=== PATIENT | female | born 1965 | race Caucasian/White ===

== ENCOUNTER → 2018-02-16 08:38 | Outpatient (CLI) | payer OTHER, SELFPAY ==
[2018-02-16 10:04] LABS: Add Manual Diff / Slide Review NO; Basophils Percent Auto 0.8 % (0-2); Eosinophils Percent Auto 2.4 % (2-4); Hematocrit 43.3 % (36-46); Hemoglobin 14.7 g/dL (12.0-16.0); Lymphocytes Percent Auto 29.4 % (25-40); Mean Corpuscular HGB Conc 34.1 % (30-36); Mean Corpuscular Hemoglobin 30.5 PG (26-34); Mean Corpuscular Volume 89.4 fL (80-100); Monocytes Percent Auto 7.4 % (3-14); Neutrophils Absolute Auto 3900 /uL (3000-5900); Platelet Count 284 X10^3/uL (150-400); Red Blood Cell Count 4.84 X10^6/uL (4.0-5.2); White Blood Cell Count 6.5 X10^3/uL (4.5-11.0)
[2018-02-16 10:41] LABS: Alanine Aminotransferase 125 IU/L (9-52); Albumin 4.1 g/dL (3.5-5.0); Albumin Globulin Ratio 1.3 (1.0-2.8); Alkaline Phosphatase 235 U/L (38-126); Aspartate Aminotransferase 98 IU/L (14-36); BUN Creatinine Ratio 24.4 (6-22); Bilirubin Total 0.5 mg/dL (0.2-1.3); Calcium 9.6 mg/dL (8.4-10.2); Cholesterol 230 mg/dL (140-199); Estimated Glomerular Filt Rate > 60.0 mL/min (>60); Globulin 3.2 g/dL (1.7-4.1); Glucose 88 mg/dL (70-100); HDL Cholesterol 82 mg/dL (40-60); HEMOLYSIS < 15 (0-50); LDL Cholesterol Calculated 124 mg/dL (<100); Potassium 4.3 mmol/L (3.4-5.1); Sodium 139 mmol/L (137-145); Total Protein 7.3 g/dL (6.3-8.2); Triglycerides 119 mg/dL (35-150)
[2018-02-16 10:58] LABS: TSH w/ Reflex to FT4 6.26 uIU/mL (0.47-4.68)
[2018-02-16 11:50] LABS: Free T4, Direct Thyroxine 0.95 ng/dL (0.78-2.19)
== END ==
PROVIDERS: PCP Family Medicine; Visit Provider Family Medicine
DX: I10 Essential (primary) hypertension (principal)
CPT/HCPCS: 36415; 80053; 80061; 84439; 84443; 85025

== ENCOUNTER → 2018-07-26 07:47 | Outpatient (CLI) | payer OTHER, SELFPAY ==
--- NOTE | 2018-07-26 07:49 | DI.US.S_ITS ---
PROCEDURE: US PELVIC COMPLETE INDICATIONS: PMB TECHNIQUE: Real-time scanning was performed of the pelvic organs, with image documentation. Additional endovaginal scanning was necessary due to incomplete visualization of the adnexal and endometrial structures by transabdominal scanning. COMPARISON: None. FINDINGS: Transabdominal scanning: Limited scanning through the kidneys shows no hydronephrosis. No pathologic free abdominal or pelvic fluid. Endovaginal scanning: Uterus: Uterus is normal in size at 5.1 x 2.1 x 4.0 cm. The endometrium measures 6.7 mm in combined thickness. Anterior intramural fibroid within the lower uterine segment measuring 23 mm. Ovaries: Normal ovaries bilaterally measuring 2.0 x 0.9 x 1.7 cm on the right and 1.9 x 0.9 x 2.1 cm on the left. IMPRESSION: 23 mm intramural fibroid and endometrial complex is thickened measuring 6.7 mm in this postmenopausal patient with history of bleeding. Endometrial biopsy recommended. Dictated by: Samir SANTANA Interpreted: Esteban Gaona MD on 07/26/2018 at 11:55 Approved by: Esteban Gaona M.D. on 07/26/2018 at 13:09
== END ==
PROVIDERS: PCP Family Medicine; Visit Provider Family Medicine
DX: N95.0 Postmenopausal bleeding (principal); D25.1 Intramural leiomyoma of uterus; R93.89 Abnormal findings on diagnostic imaging of other specified body structures
CPT/HCPCS: 76856

== ENCOUNTER → 2019-02-07 09:39 | Outpatient (CLI) | payer OTHER, SELFPAY ==
[2019-02-07 10:03] LABS: Add Manual Diff / Slide Review NO; Basophils Absolute Auto 0 /uL (0-100); Eosinophils Absolute Auto 100 /uL (0-450); Eosinophils Percent Auto 2.6 % (2-4); Hematocrit 42.7 % (36-46); Hemoglobin 14.7 g/dL (12.0-16.0); Lymphocytes Absolute Auto 1600 /uL (1100-4500); Lymphocytes Percent Auto 32.7 % (25-40); Mean Corpuscular HGB Conc 34.3 % (30-36); Mean Corpuscular Hemoglobin 30.6 PG (26-34); Monocytes Absolute Auto 300 /uL (0-900); Monocytes Percent Auto 6.3 % (3-14); Neutrophils Absolute Auto 2700 /uL (1500-7000); Neutrophils Percent Auto 57.4 % (50-75); Platelet Count 307 X10^3/uL (150-400); Red Cell Distribution Width 14.1 % (11.6-14.8); White Blood Cell Count 4.7 X10^3/uL (4.5-11.0)
[2019-02-07 10:22] LABS: Alanine Aminotransferase 296 IU/L (9-52); Albumin Globulin Ratio 1.1 (1.0-2.8); Alkaline Phosphatase 186 U/L (38-126); Aspartate Aminotransferase 251 IU/L (14-36); BUN Creatinine Ratio 16.7 (6-22); Bilirubin Total 0.4 mg/dL (0.2-1.3); Blood Urea Nitrogen 15 mg/dL (7-17); Calcium 9.7 mg/dL (8.4-10.2); Carbon Dioxide 28 mmol/L (22-32); Chloride 103 mmol/L (98-107); Cholesterol 228 mg/dL (140-199); Estimated Glomerular Filt Rate > 60.0 mL/min (>60); Globulin 3.5 g/dL (1.7-4.1); Glucose 94 mg/dL (70-100); HDL Cholesterol 84 mg/dL (40-60); HEMOLYSIS < 15 (0-50); LDL Cholesterol Calculated 120 mg/dL (<100); Potassium 4.5 mmol/L (3.4-5.1); Sodium 138 mmol/L (137-145); Total Protein 7.5 g/dL (6.3-8.2); Triglycerides 120 mg/dL (35-150)
[2019-02-07 11:04] LABS: Vitamin D 25 Hydroxy (D3) 36.6 ng/mL (30.0-100.0)
[2019-02-07 11:16] LABS: TSH w/ Reflex to FT4 6.36 uIU/mL (0.47-4.68)
[2019-02-07 11:51] LABS: Free T4, Direct Thyroxine 0.83 ng/dL (0.78-2.19)
== END ==
PROVIDERS: PCP Family Medicine; Visit Provider Family Medicine
DX: E03.9 Hypothyroidism, unspecified (principal); E55.9 Vitamin D deficiency, unspecified; K21.9 Gastro-esophageal reflux disease without esophagitis; R79.89 Other specified abnormal findings of blood chemistry; Z00.00 Encounter for general adult medical examination without abnormal findings
CPT/HCPCS: 36415; 80053; 80061; 82306; 84439; 84443; 85025

== ENCOUNTER → 2019-07-06 09:29 | Outpatient (CLI) | payer OTHER, SELFPAY ==
[2019-07-06 11:17] LABS: Alanine Aminotransferase 44 IU/L (9-52); Albumin 4.1 g/dL (3.5-5.0); Albumin Globulin Ratio 1.2 (1.0-2.8); Alkaline Phosphatase 174 U/L (38-126); Aspartate Aminotransferase 38 IU/L (14-36); Bilirubin Total 0.4 mg/dL (0.2-1.3); Bilirubin Unconjugated 0.3 mg/dL (0.0-1.1); Globulin 3.3 g/dL (1.7-4.1); HEMOLYSIS < 15 (0-50); Total Protein 7.4 g/dL (6.3-8.2)
[2019-07-06 11:51] LABS: TSH w/ Reflex to FT4 2.31 uIU/mL (0.47-4.68)
== END ==
PROVIDERS: PCP Family Medicine; Visit Provider Family Medicine
DX: E03.9 Hypothyroidism, unspecified (principal); R94.5 Abnormal results of liver function studies
CPT/HCPCS: 36415; 80076; 84443

== ENCOUNTER 2019-11-06 08:34 | Day surgery (SDC) | payer OTHER, SELFPAY ==
[2019-11-03 15:26] VITALS: BMI 39.0
[2019-11-06] VITALS (9 sets, daily range): BP systolic 120–144; BP diastolic 79–92; PULSE 77–89; RESP 7–16; TEMP 35.8–36.6; O2SAT 95–99; BMI 38.2
--- NOTE | 2019-11-06 | PATH_ITS ---
[facility] Accession Number: [id number] . 01 Material submitted: . PART A: endometrium - ENDOMETRIAL POLYPS PART B: endometrium - ENDOMETRIAL CURETTINGS . 02 Diagnosis: A. Endometrial Polyps: Patchy glandular crowding in a background of disordered proliferative endometrium; negative for glandular hyperplasia, cytologic atypia or malignancy. Most tissue fragments demonstrate prominent vessels, suggstive of polyp, if clinical and imaging findings are concordant. . B. Endometrial Curettings: Small portions of weakly proliferative endometrium with patchy stromal breakdown; negative for glandular hyperplasia, cytologic atypia or malignancy. [facility] 11/08/2019 1437 Local . 02 Electronically signed: . Sandy Garcia MD, Pathologist NPI- [id number] . 01 Gross description: . Part A: ENDOMETRIAL POLYPS: Received in formalin are multiple fragment(s) of patricia, soft tissue measuring 0.1 x 0.1 x 0.1 cm to 1.3 x 0.6 x 0.6 cm submitted entirely in 1 cassette(s) Part B: ENDOMETRIAL CURETTINGS: Received in formalin are minute fragments of mucoid and hemorrhagic material measuring 0.2 x 0.2 x 0.2 cm in aggregate. Submitted in toto in 1 cassette. /[facility] 11/06/2019 2237 Local . 02 Pathologist provided ICD-10: N84.0 . 02 CPT . 325016, [id number] Performed at: 01 [facility] [address], [place], [place] [id number] MD Johnnie Redding MD Phone: [phone] Performed at: 02 [facility] [address] [place], [place] [id number] MD Danielle Garcia MD Phone: [phone]
[2019-11-06] MEDS: LACTATED RINGERS 1,000 ML 42 ML IV (09:16)
--- NOTE | 2019-11-06 09:54 | PM.PREOP ---
Pre-operative Note Interval Note History & Physical reviewed/Exam performed by Physician: Yes Changes to H&P: No H&P completed within 30 days and has changed as indicated here:: Patient reports forgot vaginal cytotec, discussed that may be unable
--- NOTE | 2019-11-06 10:58 | SUR.OPER ---
Lithotomy on padded OR bed, head on pillow, arms secured on padded arm boards at <90 degrees abduction. Legs secured in padded yellow fins stirrups.
--- NOTE | 2019-11-06 12:00 | P.OP_ITS ---
Operative Date/Time/Diagnoses Date of procedure: 11/06/19 Time of procedure: 12:00 Pre-op diagnosis: postmenopausal bleeding, thickened endometrium Post-op diagnosis: other (multiple large endometrial polyps) Procedure & Clinicians Procedure: diagnostic hysteroscopy, dilation and curettage Same procedure as scheduled: Yes Indications: persistent postmenopausal bleeding, thickened endometrium Surgeon: Leah Silva Yarder Puncher: Felipe Barbour Anesthesia Type: MAC +/- Operative Notes Findings: Normal postmenopausal vulva and vagina. On entrance with hysteroscope, 2 large and 1 smaller long, thin polyps attached to uterine fundus and extending the length of the uterine cavity. Otherwise quite atrophic endometrium. No other abnormality seen. Closure Type: not applicable Specimen(s): other (endometrial polyps, endometrial curettings) Estimated Blood Loss (mL): 10 Blood products transfused: none Procedure in detail: After proper consents were obtained, the patient was taken to the operating room. IV sedation was placed and an LMA placement assured, and the patient was placed in the dorsal lithotomy position. Bimanual exam revealed a retroverted uterus. The patient was prepped with Betadine, and a speculum inserted in the vagina. The anterior lip of the cervix was grasped with a single-tooth tenaculum, and Hegar dilators were used to serially dilate the cervix with gentle pressure to 8 mm. The speculum was removed and replaced with a right angle retractor, a diagnostic hysteroscope was introduced into the uterus, and the above findings were noted. The hysteroscope was withdrawn, and the polyp forceps introduced gently through the cervix and used to grasp and remove multiple polyps. The hysteroscope was reintroduced, and 1 polyp was remaining. The hysteroscope was again withdrawn, and the final polyp grasped with the polyp forceps and removed. A gentle curettage of the endometrial cavity was performed, though minimal further tissue was removed and a gritty texture was achieved. Instruments were removed from the endometrial cavity, and the single-tooth tenaculum removed from the anterior lip of the cervix. Gentle pressure was applied with a sponge stick, and good hemostasis was achieved at the tenaculum sites. The retractor was removed from the vagina, and the patient was taken to the recovery room in stable condition. All counts were correct x2. Complications: none Post-operative Condition: stable Disposition: PACU Plan for aftercare: Routine postoperative care and follow-up in the clinic.
--- NOTE | 2019-11-06 12:00 | SUR.PHASEI ---
reported off to Eve
--- NOTE | 2019-11-06 12:03 | SUR.PHASEI ---
assumed care of pt at this time. pt resting in bed with eyes closed, easily responds to voice when spoken to.
[2019-11-06] MEDS: OXYCODONE/ACETAMINOPHEN 5/325 TABLET 1 TAB PO (12:20)
--- NOTE | 2019-11-06 15:44 | SUR.PHASEII ---
Late entry: NO drainage on zaheer pad, belly soft. New pad provided for pt to go home in. Pt voided prior to discharge, pt left when ready and left in stable condition.
== END 2019-11-06 13:50 | disposition home or self-care (01) ==
PROVIDERS: PCP Family Medicine; Referring Provider Obstetrics & Gynecology; Visit Provider Obstetrics & Gynecology
PROC: 0UDB8ZZ Extraction of Endometrium, Via Natural or Artificial Opening Endoscopic (ICD-10-PCS; CPT 58558; principal; 2019-11-06 09:45)
DX: N84.0 Polyp of corpus uteri (principal)
CPT/HCPCS: 58558; J1100; J2405; J2704; J3010

== ENCOUNTER → 2020-09-16 17:25 | Outpatient (CLI) | payer OTHER, SELFPAY ==
--- NOTE | 2020-09-16 17:26 | DI.MG.S_ITS ---
BILATERAL DIGITAL SCREENING MAMMOGRAM 3D/2D WITH CAD: 09/16/2020 CLINICAL: Routine screening. Comparison is made to exams dated: 01/29/2018 mammogram - [facility], 12/29/2012 mammogram, and 04/17/2014 mammogram - [facility]. There are scattered fibroglandular elements in both breasts. Current study was also evaluated with a Computer Aided Detection (CAD) system. No significant masses, calcifications, or other findings are seen in either breast. There has been no significant interval change. IMPRESSION: NEGATIVE There is no mammographic evidence of malignancy. A 1 year screening mammogram is recommended. This exam was interpreted at Station ID: [id number]. NOTE: For mammograms, a report in lay terms will be sent to the patient. Approximately 15% of breast malignancies will not be visualized mammographically. In the management of a palpable breast mass, a negative mammogram must not discourage biopsy of a clinically suspicious lesion. Electronically Signed By: Cristel baker/juancho:09/17/2020 13:08:23 letter sent: Normal Exam ACR BI-RADS Category 1: Negative 3341F
== END ==
PROVIDERS: PCP Family Medicine; Referring Provider Family Medicine; Visit Provider Family Medicine
DX: Z12.31 Encounter for screening mammogram for malignant neoplasm of breast (principal)
CPT/HCPCS: 77063; 77067

== ENCOUNTER → 2021-01-30 14:52 | Outpatient (CLI) | payer OTHER, SELFPAY ==
[2021-01-30] MEDS: COVID-19 VACC #1, MRNA(MOD) 100 MCG/0.5 ML VIAL IM (15:00)
== END ==
PROVIDERS: PCP Family Medicine; Visit Provider Internal Medicine
DX: Z23 Encounter for immunization (principal)
CPT/HCPCS: 0011A; 91301

== ENCOUNTER → 2021-03-01 08:29 | Outpatient (CLI) | payer OTHER, SELFPAY ==
[2021-03-01 10:48] LABS: Add Manual Diff / Slide Review NO; Basophils Absolute Auto 100 /uL (0-100); Basophils Percent Auto 0.8 % (0-2); Eosinophils Absolute Auto 200 /uL (0-450); Eosinophils Percent Auto 3.2 % (2-4); Lymphocytes Absolute Auto 1800 /uL (1100-4500); Lymphocytes Percent Auto 25.5 % (25-40); Mean Corpuscular HGB Conc 33.2 % (30-36); Mean Corpuscular Hemoglobin 29.5 PG (26-34); Mean Corpuscular Volume 88.7 fL (80-100); Monocytes Absolute Auto 400 /uL (0-900); Neutrophils Absolute Auto 4700 /uL (1500-7000); Neutrophils Percent Auto 64.5 % (50-75); Platelet Count 298 X10^3/uL (150-400); Red Cell Distribution Width 14.3 % (11.6-14.8); White Blood Cell Count 7.2 X10^3/uL (4.5-11.0)
[2021-03-01 11:03] LABS: Alanine Aminotransferase 39 IU/L (<35); Albumin 3.8 g/dL (3.5-5.0); Albumin Globulin Ratio 1.2 (1.0-2.8); Alkaline Phosphatase 161 U/L (38-126); Aspartate Aminotransferase 42 IU/L (14-36); BUN Creatinine Ratio 21.4 (6-22); Bilirubin Total 0.4 mg/dL (0.2-1.3); Blood Urea Nitrogen 18 mg/dL (7-17); Calcium 9.2 mg/dL (8.4-10.2); Carbon Dioxide 24 mmol/L (22-32); Chloride 105 mmol/L (98-107); Cholesterol 248 mg/dL (140-199); Estimated Glomerular Filt Rate > 60.0 mL/min (>60); Globulin 3.2 g/dL (1.7-4.1); Glucose 91 mg/dL (70-100); HDL Cholesterol 58 mg/dL (40-60); HEMOLYSIS 18 (0-50); LDL Cholesterol Calculated 156 mg/dL (<100); Potassium 4.1 mmol/L (3.4-5.1); Sodium 136 mmol/L (137-145); Triglycerides 170 mg/dL (35-150)
[2021-03-01 11:30] LABS: TSH w/ Reflex to FT4 4.58 uIU/mL (0.47-4.68)
== END ==
PROVIDERS: PCP Family Medicine; Referring Provider Family Medicine; Visit Provider Family Medicine
DX: E03.9 Hypothyroidism, unspecified (principal); F34.1 Dysthymic disorder; K76.0 Fatty (change of) liver, not elsewhere classified
CPT/HCPCS: 36415; 80053; 80061; 84443; 85025

== ENCOUNTER → 2021-03-07 15:57 | Outpatient (CLI) | payer OTHER, SELFPAY ==
[2021-03-07] MEDS: COVID-19 VACC #2, MRNA(MOD) 100 MCG/0.5 ML VIAL IM (16:10)
== END ==
PROVIDERS: PCP Family Medicine; Visit Provider Internal Medicine
DX: Z23 Encounter for immunization (principal)
CPT/HCPCS: 0012A; 91301

== ENCOUNTER 2021-04-09 18:39 | Emergency (ER) | payer OTHER, SELFPAY ==
[2021-04-09 18:44] VITALS: PULSE 95; O2SAT 97
[2021-04-09 18:45] VITALS: BP 141/97; PULSE 90; RESP 20; TEMP 37; O2SAT 99; BMI 38.7
--- NOTE | 2021-04-09 18:47 | ED_ITS ---
HPI - Chest Pain General Chief Complaint: Chest Pain Stated Complaint: chest pain/arm tingling/jaw pain/fatigue Time Seen by Provider: 04/09/21 18:42 History of Present Illness HPI narrative: Dayna presents today with chief complaint of wanting a cardiac workup. She reports that she has had occasional increased burning in her chest that is similar to her previous acid reflux symptoms but is slightly different. She has also had right arm numbness which she gets on occasion but seems to be slightly worse. Over the last month she has also jaw pain occasionally in the morning after waking up which gets better throughout the day. She reports that she was told that these can be signs heart disease so she wanted to get checked out. She currently denies any symptoms at this time. She denies any significant past family medical history of cardiac abnormalities. She denies any personal history of cardiac disease. She is obese but does not have any history hypertension. She reports that her last blood work done by her PCP earlier today was within normal limits. Cholesterol levels were slightly elevated. None of these symptoms occur at the same time. There does not seem to be any specific triggers for her symptoms. She specifically denies any exertional dyspnea, exertional chest pain, lower extremity swelling or edema. Related Data Home Medications Medication Instructions Recorded Confirmed cholecalciferol (vitamin D3) 50 2,000 unit PO DAILY #0 07/20/17 02/10/21 mcg (2,000 unit) capsule (Vitamin D3) coQ10 (ubiquinol) 200 mg capsule 200 mg PO DAILY 11/06/19 02/10/21 melatonin 5 mg capsule mg PO 11/21/19 02/10/21 Previous Rx's Medication Instructions Recorded levothyroxine 50 mcg tablet 50 mcg PO DAILY #90 tab 05/06/20 (Synthroid) pantoprazole 40 mg tablet,delayed See Rx Instructions .ROUTE 12/06/20 release .COMPLEX #90 tab metronidazole 1 % topical gel 1 applic TOPICAL DAILY #60 g 01/15/21 phentermine 37.5 mg tablet 37.5 mg PO QAM #90 tab 01/15/21 phentermine 7.5 mg-topiramate ER 1 cap PO DAILY #30 cap 02/10/21 46 mg capsule,ext.release 24hr mphase (Qsymia) Wellbutrin XL 300 mg 24 hr tablet, 300 mg PO QAM #90 tab NS 02/21/21 extended release (bupropion HCl) Allergies Allergy/AdvReac Type Severity Reaction Status Date / Time No Known Drug Allergies Allergy Verified 01/09/21 09:16 Review of Systems Review of Systems Narrative: As per HPI Patient History Medical History (Updated 04/09/21 @ 19:41 by Samir Mcdaniel PA-C) ADHD Arthritis of hip (08/12/16) Cellulitis Eating disorder, unspecified Encounter for general adult medical examination without abnormal findings Generalized anxiety disorder Hyperthyroidism Obesity (BMI 30-39.9) Postmenopausal bleeding Surgical History (Updated 02/10/21 @ 15:11 by Francisco Javier Powers MD) History of third molar tooth extraction Family History Father Alcoholism Mother Age: 76 Autoimmune disorder Joint problem Sister Age: 52 Autoimmune disorder Social History (Updated 03/05/21 @ 13:31 by Francisco Javier Powers MD) household members: spouse pets and animals: Yes (Cats and dogs) education level: other isacc/adventism: Religious leisure activities: reading other: Hiking, camping, crafts, travel seatbelt use: always helmet use: Yes (Bicycles) working smoke detector in home: Yes firearms in home: Yes Smoking Status: Never smoker alcohol intake: current substance use type: other during the past year weight has: increased > 10 lbs well-balanced diet: about half the time daily servings fruits/ve-4 caffeine: Yes (1-2 caffeine drinks per day) eating out: 1-3 times/week Type(s) of exercise: walking, other and yoga frequency: 1-2 times per week duration: 30-45 minutes/day additional social history: Teacher Smoking Status: Never smoker alcohol intake frequency: holidays/special occasions only Substance Use Type: does not use Exam Narrative Exam Narrative: Exam Narrative: Const General: cooperative, healthy appearing, comfortable, no acute distress, well developed and well groomed Nutritional Appearance: Elevated BMI Orientation: alert and oriented x3 HENMT Head: normal to inspection and atraumatic Ears: hearing grossly normal bilaterally Nose: external nose normal and nares normal Face and sinus: normal facial exam Neck Neck: normal visual inspection and supple Resp Effort & Inspection: normal respiratory effort, able to speak in complete sentences, no audible wheezes, not labored, no nasal flaring and no respiratory distress, clear to auscultation bilaterally. Cardiac Regular rate and rhythm, no discernible murmurs, rubs or gallops. No calf tenderness or pedal edema. Neuro General: alert, oriented x3, gait normal, tone normal and moves all extremities Cognition: normal cognition Speech: speech normal Gait: normal gait Psych Appearance: grossly normal and well kempt Mental Status: mental status grossly normal Speech and Movement: speech and movement normal Mood: congruent mood Affect: normal affect Initial Vital Signs Initial Vital Signs: Vital Signs Pulse Rate 95 H 04/09/21 18:44 Pulse Oximetry 97 04/09/21 18:44 Scores HEART Score Heart Score history: Slightly Suspicious Heart Score EKG: Normal Heart Score Age: 45-64 years old Heart Score risk factors: 1-2 risk factors Heart Score troponin: < or = to normal limit Heart Score Total: 2 Wells' Criteria for PE Clinical signs and symptoms of DVT: No PE is #1 Dx or equally likely: No Heart rate > 100: No Immobilization at least 3 days or surg in previous 4 weeks: No History of PE or DVT: No Hemoptysis: No Malignancy w/Treatment within 6 months or palliative: No Wells' PE Score total: 0 Course Orders Ordered: ED Orders 04/09/21 18:59 Basic Metabolic Panel Stat Complete Blood Count AUTO DIFF Stat Troponin & CK Cardiac Panel Stat 04/09/21 19:00 XR chest 1V Stat EKG-12 Lead Stat Sodium Chloride (Normal Saline 0.9%) 1,000 mls @ 150 mls/hr IV CONT MAEVE Last Admin: 04/09/21 19:42 Dose: Not Given Documented by: Vital Signs Vital signs: Vital Signs - 8 hr 04/09/21 18:44 04/09/21 18:45 04/09/21 19:00 Temperature 98.6 F Pulse Rate 95 H 90 83 Respiratory Rate 20 14 Blood Pressure 141/97 H Pulse Oximetry 97 99 97 04/09/21 19:01 04/09/21 19:30 Temperature Pulse Rate 86 88 Respiratory Rate 17 Blood Pressure 140/82 144/85 H Pulse Oximetry 96 97 MDM - Chest Pain Medical Records Data Medical records narrative: Differential diagnosis includes pulmonary embolism, acute coronary syndrome, cardiac arrhythmia, pneumonia, COPD. Patient appears well and is not currently having any symptoms. She does not have many significant risk factors for acute coronary syndrome. Heart score and well's criteria as noted above. Suggest low likelihood. She is nonsmoker and does not have history of hypertension. No connective tissue disease history. Low likelihood for aortic etiology. At this time, recommend outpatient workup for her symptoms. Strict ER return precautions were discussed with the patient and she verbalized understanding and agreement to the plan. Lab Data Result diagrams: 04/09/21 18:50 04/09/21 18:50 Labs: Lab Results 04/09/21 04/09/21 04/09/21 Range/Units 18:50 18:50 18:50 WBC 10.4 (4.5-11.0) X10^3/uL RBC 4.56 (4.0-5.2) X10^6/uL Hgb 13.6 (12.0-16.0) g/dL Hct 40.4 (36-46) % MCV 88.6 (80-100) fL MCH 29.9 (26-34) PG MCHC 33.7 (30-36) % RDW 14.3 (11.6-14.8) % Plt Count 305 (150-400) X10^3/uL Neut % (Auto) 66.9 (50-75) % Lymph % (Auto) 21.9 L (25-40) % Vermillion % (Auto) 6.1 (3-14) % Eos % (Auto) 4.2 H (2-4) % Baso % (Auto) 0.9 (0-2) % Neut # (Auto) 6900 (6558-0481) /uL Lymph # (Auto) 2300 (6799-8269) /uL Vermillion # (Auto) 600 (0-900) /uL Eos # (Auto) 400 (0-450) /uL Baso # (Auto) 100 (0-100) /uL Sodium 135 L (137-145) mmol/L Potassium 4.5 (3.4-5.1) mmol/L Chloride 104 (98-107) mmol/L Carbon Dioxide 25 (22-32) mmol/L BUN 17 (7-17) mg/dL Creatinine 0.85 (0.52-1.04) mg/dL Estimated GFR > 60.0 (>60) mL/min BUN/Creatinine Ratio 20.0 (6-22) Glucose 93 (70-100) mg/dL Calcium 9.1 (8.4-10.2) mg/dL Total Creatine Kinase 116 Cancelled (30-135) U/L CK-MB (CK-2) 1.91 Cancelled (<2.37) ng/mL CK-MB (CK-2) Rel Index 1.6 Cancelled (1.5-5.0) % Troponin I < 0.012 Cancelled (0.01-0.034) ng/mL Discharge Plan Departure Patient Disposition: Home Clinical Impression: Chest pain Instructions: DI for Chest Pain Activity Restrictions/Additional Instructions: It was very nice to meet you this evening. Your evaluation today has been reassuring. Please give your PCP call tomorrow to schedule a follow-up appointment. If symptoms continue, you likely could benefit from a stress test and echocardiogram. Do not hesitate to return to the emergency department if you have worsening chest pain, difficulty breathing, or any other acute concerns or complaints. Thank you Samir Mcdaniel PAC Prescriptions: No Action Qsymia 7.5-46 mg capsule, ER multiphase 24 hr 1 cap PO DAILY Qty: 30 RF: 0 cholecalciferol (vitamin D3) [Vitamin D3] 2,000 UNIT capsule 2,000 unit PO DAILY Qty: 0 RF: 0 levothyroxine [Synthroid] 50 mcg tablet 50 mcg PO DAILY Qty: 90 RF: 1 pantoprazole 40 mg tablet,delayed release (DR/EC) See Rx Instructions .ROUTE .COMPLEX Qty: 90 RF: 2 phentermine 37.5 mg tablet 37.5 mg PO QAM Qty: 90 RF: 0 metronidazole 1 % gel 1 applic topical DAILY Qty: 60 RF: 3 bupropion HCl [Wellbutrin XL] 300 mg tablet extended release 24 hr 300 mg PO QAM Qty: 90 RF: 0 melatonin 5 mg capsule PO RF: 0 coQ10 (ubiquinol) 200 mg Capsule 200 mg PO DAILY RF: 0 Referrals: Francisco Javier Powers MD [Primary Care Provider] -
[2021-04-09 19:00] VITALS: PULSE 83; RESP 14; O2SAT 97
--- NOTE | 2021-04-09 19:00 | DI.RAD.S_ITS ---
PROCEDURE: XR CHEST 1V INDICATIONS: CHEST PAIN TECHNIQUE: One view of the chest was acquired. COMPARISON: None. FINDINGS: Surgical changes and devices: None. Lungs and pleura: Lungs are clear. No pleural effusions or pneumothorax. Mediastinum: Mediastinal contours appear normal. Heart size is normal. Low lung volumes accentuate pulmonary interstitium and heart size. Bones and chest wall: No suspicious bony lesions. Overlying soft tissues appear unremarkable. IMPRESSION: No acute cardiopulmonary findings Dictated by: Yoseph Ferrera M.D. on 04/09/2021 at 18:27 Approved by: Yoseph Ferrera M.D. on 04/09/2021 at 18:27
[2021-04-09 19:01] VITALS: BP 140/82; PULSE 86; RESP 17; O2SAT 96
[2021-04-09 19:05] LABS: Add Manual Diff / Slide Review NO; Basophils Absolute Auto 100 /uL (0-100); Basophils Percent Auto 0.9 % (0-2); Eosinophils Absolute Auto 400 /uL (0-450); Eosinophils Percent Auto 4.2 % (2-4); Hematocrit 40.4 % (36-46); Hemoglobin 13.6 g/dL (12.0-16.0); Lymphocytes Absolute Auto 2300 /uL (1100-4500); Lymphocytes Percent Auto 21.9 % (25-40); Mean Corpuscular HGB Conc 33.7 % (30-36); Mean Corpuscular Hemoglobin 29.9 PG (26-34); Mean Corpuscular Volume 88.6 fL (80-100); Monocytes Absolute Auto 600 /uL (0-900); Monocytes Percent Auto 6.1 % (3-14); Neutrophils Absolute Auto 6900 /uL (1500-7000); Neutrophils Percent Auto 66.9 % (50-75); Platelet Count 305 X10^3/uL (150-400); Red Blood Cell Count 4.56 X10^6/uL (4.0-5.2); Red Cell Distribution Width 14.3 % (11.6-14.8); White Blood Cell Count 10.4 X10^3/uL (4.5-11.0)
[2021-04-09 19:19] LABS: Blood Urea Nitrogen 17 mg/dL (7-17); Calcium 9.1 mg/dL (8.4-10.2); Carbon Dioxide 25 mmol/L (22-32); Chloride 104 mmol/L (98-107); Creatine Kinase 116 U/L (30-135); Estimated Glomerular Filt Rate > 60.0 mL/min (>60); Glucose 93 mg/dL (70-100); HEMOLYSIS 43 (0-50); Potassium 4.5 mmol/L (3.4-5.1); Sodium 135 mmol/L (137-145)
[2021-04-09 19:26] LABS: Troponin I < 0.012 ng/mL (0.01-0.034)
[2021-04-09 19:27] LABS: CKMB % Relative Index 1.6 % (1.5-5.0); Creatine Kinase MB 1.91 ng/mL (<2.37)
[2021-04-09 19:30] VITALS: BP 144/85; PULSE 88; O2SAT 97
== END 2021-04-09 19:50 | disposition home or self-care (01) ==
PROVIDERS: Emergency Provider Physician Assistant; PCP Family Medicine
DX: R07.9 Chest pain, unspecified (principal); R20.0 Anesthesia of skin
CPT/HCPCS: 36415; 71045; 80048; 82550; 82553; 84484; 85025; 93005; 93010; 99283; 99284

== ENCOUNTER → 2022-02-02 07:13 | Outpatient (CLI) | payer OTHER, SELFPAY ==
[2022-02-02 08:45] LABS: Hematocrit 41.4 % (36-46); Hemoglobin 13.9 g/dL (12.0-16.0); Mean Corpuscular HGB Conc 33.4 % (30-36); Mean Corpuscular Hemoglobin 29.4 PG (26-34); Mean Corpuscular Volume 87.8 fL (80-100); Platelet Count 323 X10^3/uL (150-400); Red Blood Cell Count 4.72 X10^6/uL (4.0-5.2); Red Cell Distribution Width 14.5 % (11.6-14.8); White Blood Cell Count 7.2 X10^3/uL (4.5-11.0)
[2022-02-02 09:03] LABS: Alanine Aminotransferase 44 IU/L (<35); Albumin 3.8 g/dL (3.5-5.0); Albumin Globulin Ratio 1.4 (1.0-2.8); Alkaline Phosphatase 158 U/L (38-126); Aspartate Aminotransferase 48 IU/L (14-36); BUN Creatinine Ratio 15.9 (6-22); Bilirubin Total 0.4 mg/dL (0.2-1.3); Blood Urea Nitrogen 14 mg/dL (7-17); Calcium 8.9 mg/dL (8.4-10.2); Carbon Dioxide 26 mmol/L (22-32); Chloride 102 mmol/L (98-107); Cholesterol 222 mg/dL (140-199); Estimated Glomerular Filt Rate > 60 mL/min (>60); Globulin 2.8 g/dL (1.7-4.1); Glucose 99 mg/dL (70-100); HDL Cholesterol 87 mg/dL (40-60); HEMOLYSIS < 15 (0-50); LDL Cholesterol Calculated 110 mg/dL (<100); Potassium 4.6 mmol/L (3.4-5.1); Sodium 134 mmol/L (137-145); Total Protein 6.6 g/dL (6.3-8.2); Triglycerides 125 mg/dL (35-150)
[2022-02-02 09:57] LABS: Free T4, Direct Thyroxine 1.33 ng/dL (0.78-2.19)
[2022-02-02 10:02] LABS: Neutrophils Absolute Manual 4536 /uL (3000-5900); Total Cells Counted 100
[2022-02-02 10:03] LABS: RBC Morphology Normal Morphology
== END ==
PROVIDERS: PCP Family Medicine; Referring Provider Family Medicine; Visit Provider Family Medicine
DX: K76.0 Fatty (change of) liver, not elsewhere classified (principal)
CPT/HCPCS: 36415; 80053; 80061; 84439; 84443; 85025

== ENCOUNTER → 2022-03-09 08:01 | Outpatient (CLI) | payer OTHER, SELFPAY | PROVIDERS: PCP Family Medicine; Referring Provider Family Medicine; Visit Provider Family Medicine | DX: Z53.20 Procedure and treatment not carried out because of patient's decision for unspecified reasons (principal) ==

== ENCOUNTER → 2022-03-12 09:24 | Outpatient (CLI) | payer OTHER, SELFPAY ==
--- NOTE | 2022-03-12 09:25 | DI.MG.S_ITS ---
BILATERAL DIGITAL SCREENING MAMMOGRAM 3D/2D WITH CAD: 03/12/2022 CLINICAL: Routine screening. Comparison is made to exams dated: 09/16/2020 mammogram, 01/29/2018 mammogram - [facility], 04/17/2014 mammogram, and 12/29/2012 mammogram - [facility]. There are scattered fibroglandular elements in both breasts. Current study was also evaluated with a Computer Aided Detection (CAD) system. No significant masses, calcifications, or other findings are seen in either breast. There has been no significant interval change. IMPRESSION: NEGATIVE There is no mammographic evidence of malignancy. A 1 year screening mammogram is recommended. This exam was interpreted at Station ID: [id number]. NOTE: For mammograms, a report in lay terms will be sent to the patient. Approximately 15% of breast malignancies will not be visualized mammographically. In the management of a palpable breast mass, a negative mammogram must not discourage biopsy of a clinically suspicious lesion. Electronically Signed By: Eder jaimes/juancho:03/12/2022 10:11:26 letter sent: Normal Exam ACR BI-RADS Category 1: Negative 3341F
== END ==
PROVIDERS: PCP Family Medicine; Referring Provider Family Medicine; Visit Provider Family Medicine
DX: Z12.31 Encounter for screening mammogram for malignant neoplasm of breast (principal)
CPT/HCPCS: 77063; 77067

== ENCOUNTER → 2022-06-07 16:08 | Outpatient (CLI) | payer OTHER, SELFPAY ==
--- NOTE | 2022-06-07 16:09 | DI.RAD.S_ITS ---
PROCEDURE: XR TOE RT MIN 2V INDICATIONS: Right 5th toe pain TECHNIQUE: 3 views of the 5th toe acquired. COMPARISON: None. FINDINGS: Bones: There is a minimally displaced fracture of the 5th distal phalanx. Osseous structures otherwise intact. Soft tissues: No suspicious soft tissue densities. IMPRESSION: Minimally displaced transverse fracture of the 5th distal phalanx. Dictated by: Darryl Odonnell M.D. on 06/07/2022 at 17:02 Approved by: Darryl Odonnell M.D. on 06/07/2022 at 17:03
== END ==
PROVIDERS: PCP Family Medicine; Referring Provider Nurse Practitioner Family; Visit Provider Nurse Practitioner Family
DX: S92.531A Displaced fracture of distal phalanx of right lesser toe(s), initial encounter for closed fracture (principal)
CPT/HCPCS: 73660

== ENCOUNTER → 2022-08-27 19:13 | Outpatient (CLI) | payer OTHER, SELFPAY ==
[2022-08-27 20:28] LABS: Influenza A - CEPHEID Flu A POSITIVE (NEGATIVE); Influenza B - CEPHEID Flu B NEGATIVE (NEGATIVE); Respiratory Syncytial Virus Negative (Negative)
[2022-08-27 20:30] LABS: COVID-19 CEPHEID 4-PLEX PCR Negative (Negative)
== END ==
PROVIDERS: PCP Family Medicine; Visit Provider Registered Nurse
DX: R68.89 Other general symptoms and signs (principal)
CPT/HCPCS: 0241U

== ENCOUNTER → 2022-09-05 08:38 | Outpatient (CLI) | payer OTHER, SELFPAY ==
[2022-09-05 09:56] LABS: Add Manual Diff / Slide Review NO; Basophils Absolute Auto 0 /uL (0-100); Basophils Percent Auto 0.6 % (0-2); Eosinophils Absolute Auto 200 /uL (0-450); Eosinophils Percent Auto 2.7 % (2-4); Hematocrit 40.5 % (36-46); Hemoglobin 13.7 g/dL (12.0-16.0); Lymphocytes Absolute Auto 1600 /uL (1100-4500); Lymphocytes Percent Auto 28.4 % (25-40); Mean Corpuscular HGB Conc 33.8 % (30-36); Mean Corpuscular Hemoglobin 29.5 PG (26-34); Mean Corpuscular Volume 87.2 fL (80-100); Monocytes Absolute Auto 400 /uL (0-900); Monocytes Percent Auto 6.7 % (3-14); Neutrophils Absolute Auto 3500 /uL (1500-7000); Neutrophils Percent Auto 61.6 % (50-75); Platelet Count 283 X10^3/uL (150-400); Red Blood Cell Count 4.65 X10^6/uL (4.0-5.2); White Blood Cell Count 5.7 X10^3/uL (4.5-11.0)
[2022-09-05 10:07] LABS: Cholesterol 192 mg/dL (140-199); HDL Cholesterol 39 mg/dL (40-60); HEMOLYSIS < 15 (0-50); Iron 90 ug/dL (37-170); LDL Cholesterol Calculated 124 mg/dL (<100); Triglycerides 146 mg/dL (35-150); Uric Acid 4.7 mg/dL (2.5-6.2)
[2022-09-05 10:10] LABS: Hemoglobin A1C% w Est Avg Glu 5.5 % (4.0-6.0)
[2022-09-05 10:20] LABS: Percent Iron Saturation 31 % (15-50); Total Iron Binding Capacity 294 ug/dL (265-497); Transferrin 238 mg/dL (206-381)
[2022-09-05 10:39] LABS: TSH w/ Reflex to FT4 0.02 uIU/mL (0.47-4.68); Vitamin D 25 Hydroxy (D3) 51.8 ng/mL (30.0-100.0)
[2022-09-05 10:42] LABS: Ferritin 71 ng/mL (11-264)
[2022-09-05 10:57] LABS: Vitamin B12 > 1000 pg/mL (239-931)
[2022-09-05 16:32] LABS: Free T4, Direct Thyroxine 1.71 ng/dL (0.78-2.19)
[2022-09-07 12:26] LABS: Selenium 136 ug/L (93-198)
[2022-09-07 14:46] LABS: Zinc 75 ug/dL (44-115)
[2022-09-09 21:39] LABS: Magnesium, RBC 6.6 mg/dL (4.2-6.8)
[2022-09-09 22:34] LABS: Vitamin B6 69.9 ug/L (3.4-65.2)
[2022-09-10 10:38] LABS: Vitamin B1 238.3 nmol/L (66.5-200.0)
[2022-09-11 07:36] LABS: Vitamin A 49.9 ug/dL (20.1-62.0)
== END ==
PROVIDERS: PCP Family Medicine; Referring Provider Family Medicine; Visit Provider Family Medicine
DX: D50.9 Iron deficiency anemia, unspecified (principal); E53.1 Pyridoxine deficiency; E55.9 Vitamin D deficiency, unspecified; E56.9 Vitamin deficiency, unspecified; E63.9 Nutritional deficiency, unspecified; E66.01 Morbid (severe) obesity due to excess calories; E88.9 Metabolic disorder, unspecified; K90.9 Intestinal malabsorption, unspecified; R74.01 Elevation of levels of liver transaminase levels; R94.6 Abnormal results of thyroid function studies
CPT/HCPCS: 36415; 80061; 82306; 82525; 82607; 82728; 83036; 83540; 83550; 83735; 84207; 84255; 84425; 84439; 84443; 84550; 84590; 84630; 85025

== ENCOUNTER → 2022-11-02 16:23 | Outpatient (CLI) | payer OTHER, SELFPAY ==
[2022-11-02 17:40] LABS: Alanine Aminotransferase 60 IU/L (<35); Albumin 3.8 g/dL (3.5-5.0); Albumin Globulin Ratio 1.4 (1.0-2.8); Alkaline Phosphatase 196 U/L (38-126); Aspartate Aminotransferase 49 IU/L (14-36); Bilirubin Total 0.3 mg/dL (0.2-1.3); Bilirubin Unconjugated 0.1 mg/dL (0.0-1.1); Globulin 2.7 g/dL (1.7-4.1); HEMOLYSIS < 15 (0-50); Total Protein 6.5 g/dL (6.3-8.2)
[2022-11-02 18:09] LABS: TSH w/ Reflex to FT4 1.86 uIU/mL (0.47-4.68)
== END ==
PROVIDERS: PCP Registered Nurse Diabetes Educator; Referring Provider Registered Nurse Diabetes Educator; Visit Provider Registered Nurse Diabetes Educator
DX: E03.9 Hypothyroidism, unspecified (principal); R79.89 Other specified abnormal findings of blood chemistry
CPT/HCPCS: 36415; 80076; 84443

== ENCOUNTER → 2023-02-20 08:05 | Outpatient (CLI) | payer OTHER, SELFPAY ==
[2023-02-20 09:12] LABS: Alanine Aminotransferase 74 IU/L (<35); Albumin 3.5 g/dL (3.5-5.0); Albumin Globulin Ratio 1.3 (1.0-2.8); Alkaline Phosphatase 180 U/L (38-126); Aspartate Aminotransferase 50 IU/L (14-36); BUN Creatinine Ratio 18.6 (6-22); Bilirubin Total 0.4 mg/dL (0.2-1.3); Blood Urea Nitrogen 16 mg/dL (7-17); Calcium 8.9 mg/dL (8.4-10.2); Carbon Dioxide 27 mmol/L (22-32); Chloride 101 mmol/L (98-107); Cholesterol 200 mg/dL (140-199); Estimated Glomerular Filt Rate > 60 mL/min (>60); Globulin 2.8 g/dL (1.7-4.1); Glucose 89 mg/dL (70-100); HDL Cholesterol 77 mg/dL (40-60); HEMOLYSIS < 15 (0-50); Iron 93 ug/dL (37-170); LDL Cholesterol Calculated 107 mg/dL (<100); Potassium 3.9 mmol/L (3.4-5.1); Sodium 135 mmol/L (137-145); Total Protein 6.3 g/dL (6.3-8.2); Triglycerides 78 mg/dL (35-150); Uric Acid 3.5 mg/dL (2.5-6.2)
[2023-02-20 09:23] LABS: Percent Iron Saturation 32 % (15-50); Total Iron Binding Capacity 288 ug/dL (265-497); Transferrin 224 mg/dL (206-381)
[2023-02-20 09:25] LABS: Add Manual Diff / Slide Review NO; Basophils Absolute Auto 100 /uL (0-100); Basophils Percent Auto 0.8 % (0-2); Eosinophils Absolute Auto 200 /uL (0-450); Eosinophils Percent Auto 2.6 % (2-4); Hematocrit 38.9 % (36-46); Hemoglobin 13.2 g/dL (12.0-16.0); Lymphocytes Absolute Auto 2300 /uL (1100-4500); Lymphocytes Percent Auto 35.2 % (25-40); Mean Corpuscular Hemoglobin 31.2 PG (26-34); Mean Corpuscular Volume 91.5 fL (80-100); Monocytes Absolute Auto 500 /uL (0-900); Monocytes Percent Auto 6.9 % (3-14); Neutrophils Absolute Auto 3600 /uL (1500-7000); Neutrophils Percent Auto 54.5 % (50-75); Platelet Count 300 X10^3/uL (150-400); Red Blood Cell Count 4.25 X10^6/uL (4.0-5.2); Red Cell Distribution Width 13.6 % (11.6-14.8); White Blood Cell Count 6.7 X10^3/uL (4.5-11.0)
[2023-02-20 09:28] LABS: Vitamin D 25 Hydroxy (D3) 70.8 ng/mL (30.0-100.0)
[2023-02-20 09:44] LABS: Thyroid Stimulating Hormone 1.31 uIU/mL (0.47-4.68)
[2023-02-20 09:47] LABS: Ferritin 80 ng/mL (11-264)
[2023-02-20 10:18] LABS: Folate > 20.0 ng/mL (2.76-20.0); Vitamin B12 915 pg/mL (239-931)
[2023-02-21 12:07] LABS: Labcorp Hemoglobin (Hb) A1c 5.3 % (4.8-5.6)
[2023-02-21 23:59] LABS: Selenium 144 ug/L (93-198); Zinc 84 ug/dL (44-115)
[2023-02-27 10:36] LABS: Vitamin A 47.7 ug/dL (20.1-62.0)
[2023-03-03 12:58] LABS: Vitamin B6 82.8 ug/L (3.4-65.2)
[2023-03-05 10:10] LABS: Vitamin B1 226.3 nmol/L (66.5-200.0)
== END ==
PROVIDERS: PCP Registered Nurse Diabetes Educator; Referring Provider Registered Nurse Diabetes Educator; Visit Provider Registered Nurse Diabetes Educator
DX: E55.9 Vitamin D deficiency, unspecified (principal); E56.9 Vitamin deficiency, unspecified; E61.1 Iron deficiency; E63.9 Nutritional deficiency, unspecified; E66.01 Morbid (severe) obesity due to excess calories; E88.9 Metabolic disorder, unspecified; K90.9 Intestinal malabsorption, unspecified; R73.09 Other abnormal glucose; R74.01 Elevation of levels of liver transaminase levels; R94.6 Abnormal results of thyroid function studies
CPT/HCPCS: 36415; 80053; 80061; 82306; 82525; 82607; 82728; 82746; 83036; 83540; 83550; 83735; 84207; 84255; 84425; 84443; 84550; 84590; 84630; 85025

== ENCOUNTER → 2023-02-27 08:46 | Outpatient (CLI) | payer OTHER, SELFPAY ==
[2023-03-04 01:54] LABS: Vitamin A 45.1 ug/dL (20.1-62.0)
[2023-03-12 17:20] LABS: Vitamin B1 242.3 nmol/L (66.5-200.0)
[2023-03-15 19:25] LABS: Vitamin B6 156.7 ug/L (3.4-65.2)
== END ==
PROVIDERS: PCP Registered Nurse Diabetes Educator; Referring Provider Registered Nurse Diabetes Educator; Visit Provider Registered Nurse Diabetes Educator
DX: E56.9 Vitamin deficiency, unspecified (principal); E88.9 Metabolic disorder, unspecified; E66.01 Morbid (severe) obesity due to excess calories; E55.9 Vitamin D deficiency, unspecified; R94.6 Abnormal results of thyroid function studies; K90.9 Intestinal malabsorption, unspecified; R73.09 Other abnormal glucose; E61.1 Iron deficiency; R74.01 Elevation of levels of liver transaminase levels; E63.9 Nutritional deficiency, unspecified
CPT/HCPCS: 36415; 84207; 84425; 84590

== ENCOUNTER → 2023-08-03 15:42 | Outpatient (CLI) | payer OTHER, SELFPAY ==
[2023-08-03 20:52] LABS: COVID19 -Nasal RAPID Negative (Negative)
== END ==
PROVIDERS: PCP Registered Nurse Diabetes Educator; Visit Provider Registered Nurse Diabetes Educator
DX: Z20.822 Contact with and (suspected) exposure to COVID-19 (principal)
CPT/HCPCS: 87635

== ENCOUNTER → 2023-09-06 | Outpatient (CLI) | payer OTHER, SELFPAY ==
--- NOTE | 2023-09-06 17:40 | DI.MG.S_ITS ---
BILATERAL DIGITAL SCREENING MAMMOGRAM 3D/2D WITH CAD: 09/06/2023 CLINICAL: Routine screening. Comparison is made to exams dated: 03/12/2022 mammogram, 09/16/2020 mammogram, and 01/29/2018 mammogram - [facility]. Both breasts are almost entirely fatty (category a/<25% glandular tissue). Current study was also evaluated with a Computer Aided Detection (CAD) system. There are possible developing multiple oval asymmetries of various size in the right breast central to the nipple anterior depth. No other significant masses, calcifications, or other findings are seen in either breast. IMPRESSION: INCOMPLETE: NEEDS ADDITIONAL IMAGING EVALUATION The possible developing asymmetries in the right breast are indeterminate. Additional views with possible ultrasound are recommended. Based on the Tyrer Cuzick model (a risk assessment model) the patient's lifetime risk is 5.5% and her 10 year risk is 2.1%. According to the ACR, ACS, and NCCN guidelines, an annual breast MRI exam along with mammogram is recommended if the patient's lifetime risk is 20% or greater. This exam was interpreted at Station ID: [id number]. NOTE: For mammograms, a report in lay terms will be sent to the patient. Approximately 15% of breast malignancies will not be visualized mammographically. In the management of a palpable breast mass, a negative mammogram must not discourage biopsy of a clinically suspicious lesion. Electronically Signed By: Emilie nguyen/:09/07/2023 16:35:28 letter sent: Additional Imaging Needed ACR BI-RADS Category 0: Incomplete 3340F
== END ==
LOC: MAMMO 17:39
PROVIDERS: PCP Registered Nurse Diabetes Educator; Referring Provider Registered Nurse Diabetes Educator; Visit Provider Registered Nurse Diabetes Educator
DX: Z12.31 Encounter for screening mammogram for malignant neoplasm of breast (principal)
CPT/HCPCS: 77063; 77067

== ENCOUNTER → 2023-09-22 08:52 | Outpatient (CLI) | payer OTHER, SELFPAY ==
--- NOTE | 2023-09-22 | DI.MG.S_ITS ---
UNILATERAL RIGHT DIGITAL DIAGNOSTIC MAMMOGRAM 3D/2D WITH ADDITIONAL VIEWS: 09/22/2023 CLINICAL: Additional evaluation requested from prior study. Comparison is made to exams dated: 09/06/2023 mammogram, 03/12/2022 mammogram, 09/16/2020 mammogram, and 01/29/2018 mammogram - [facility]. There are scattered areas of fibroglandular density in the right breast (category b / 25%-50% glandular tissue). There are multiple oval focal asymmetries with an obscured and circumscribed margin in the right breast superior lateral quadrant in the retroareolar region. No other significant masses or calcifications are seen in the breast. IMPRESSION: INCOMPLETE: NEEDS ADDITIONAL IMAGING EVALUATION The multiple oval focal asymmetries in the right breast are indeterminate. An ultrasound is recommended. Based on the Tyrer Cuzick model (a risk assessment model) the patient's lifetime risk is 8.2% and her 10 year risk is 3.2%. According to the ACR, ACS, and NCCN guidelines, an annual breast MRI exam along with mammogram is recommended if the patient's lifetime risk is 20% or greater. This exam was interpreted at Station ID: [id number]. NOTE: For mammograms, a report in lay terms will be sent to the patient. Approximately 15% of breast malignancies will not be visualized mammographically. In the management of a palpable breast mass, a negative mammogram must not discourage biopsy of a clinically suspicious lesion. Electronically Signed By: Darryl multani/juancho:09/22/2023 16:55:02 ACR BI-RADS Category 0: Incomplete 3340F
--- NOTE | 2023-09-22 08:53 | DI.US.S_ITS ---
LIMITED ULTRASOUND OF RIGHT BREAST: 09/22/2023 CLINICAL: Patient returns today to evaluate focal asymmetries in the right breast. Comparison is made to exams dated: 09/22/2023 mammogram, 09/06/2023 mammogram, 03/12/2022 mammogram, 09/16/2020 mammogram, and 01/29/2018 mammogram - [facility]. Real-time ultrasound of the right breast retroareolar was performed. Milan scale images of the real-time examination were reviewed. No significant abnormalities were seen sonographically in the right breast. IMPRESSION: PROBABLY BENIGN There is no abnormality seen in the right breast to correspond with the mammography finding in the sub-areolar depth. A follow-up right mammogram and possible ultrasound in 6 months is recommended to demonstrate stability. This exam was interpreted at Station ID: [id number]. Electronically Signed By: Darryl Odonnell M.D. ar/:09/22/2023 16:56:37 letter sent: Followup Recommended Ultrasound BI-RADS: 3 Probably benign
== END ==
PROVIDERS: PCP Registered Nurse Diabetes Educator; Referring Provider Registered Nurse Diabetes Educator; Visit Provider Registered Nurse Diabetes Educator
DX: R92.8 Other abnormal and inconclusive findings on diagnostic imaging of breast (principal); N64.89 Other specified disorders of breast
CPT/HCPCS: 76642; 77065; G0279

== ENCOUNTER → 2023-12-06 07:06 | Outpatient (CLI) | payer OTHER, SELFPAY ==
[2023-12-06 08:56] LABS: Alanine Aminotransferase 58 IU/L (<35); Albumin 3.6 g/dL (3.5-5.0); Albumin Globulin Ratio 1.4 (1.0-2.8); Alkaline Phosphatase 88 U/L (38-126); Aspartate Aminotransferase 44 IU/L (14-36); Bilirubin Total 0.7 mg/dL (0.2-1.3); Bilirubin Unconjugated 0.4 mg/dL (0.0-1.1); Cholesterol 215 mg/dL (140-199); Globulin 2.6 g/dL (1.7-4.1); HDL Cholesterol 98 mg/dL (40-60); HEMOLYSIS < 15 (0-50); LDL Cholesterol Calculated 98 mg/dL (<100); Total Protein 6.2 g/dL (6.3-8.2); Triglycerides 97 mg/dL (35-150)
[2023-12-06 09:01] LABS: Vitamin D 25 Hydroxy (D3) 73.6 ng/mL (30.0-100.0)
[2023-12-06 09:18] LABS: TSH w/ Reflex to FT4 3.54 uIU/mL (0.47-4.68)
== END ==
LOC: LAB 07:07
PROVIDERS: PCP Registered Nurse Diabetes Educator; Referring Provider Registered Nurse Diabetes Educator; Visit Provider Registered Nurse Diabetes Educator
DX: E78.5 Hyperlipidemia, unspecified (principal); R74.01 Elevation of levels of liver transaminase levels; E03.9 Hypothyroidism, unspecified; E55.9 Vitamin D deficiency, unspecified
CPT/HCPCS: 36415; 80061; 80076; 82306; 84443

== ENCOUNTER → 2023-12-22 16:20 | Outpatient (CLI) | payer OTHER, SELFPAY ==
[2023-12-22 19:21] LABS: Influenza A - CEPHEID Flu A NEGATIVE (NEGATIVE); Influenza B - CEPHEID Flu B NEGATIVE (NEGATIVE); Respiratory Syncytial Virus Negative (Negative)
[2023-12-22 19:22] LABS: COVID-19 CEPHEID 4-PLEX PCR Negative (Negative)
== END ==
PROVIDERS: PCP Registered Nurse Diabetes Educator; Visit Provider Physician Assistant
DX: R05.1 Acute cough (principal)
CPT/HCPCS: 0241U

== ENCOUNTER → 2024-03-24 09:32 | Outpatient (CLI) | payer OTHER, SELFPAY ==
--- NOTE | 2024-03-24 09:32 | DI.MG.S_ITS ---
UNILATERAL RIGHT DIGITAL DIAGNOSTIC MAMMOGRAM 3D/2D: 03/24/2024 CLINICAL: Patient returns for a 6 month follow up of the right breast. Comparison is made to exams dated: 09/22/2023 mammogram, 09/06/2023 mammogram, 03/12/2022 mammogram, and 09/16/2020 mammogram - [facility]. There are scattered areas of fibroglandular density in the right breast (category b / 25%-50% glandular tissue). Redemonstration of previously described multiple oval focal asymmetries with an obscured and circumscribed margin in the right breast superior lateral quadrant in the retroareolar region. These were not seen on the prior ultrasound. No other significant masses or calcifications are seen in the breast. IMPRESSION: PROBABLY BENIGN The multiple oval focal asymmetries in the right breast resemble fibroglandular tissue and are probably benign. A follow-up bilateral mammogram in 6 months is recommended to demonstrate stability. Findings and recommendations were conveyed to the patient during today's evaluation. Based on the Tyrer Cuzick model (a risk assessment model) the patient's lifetime risk is 8.2% and her 10 year risk is 3.2%. According to the ACR, ACS, and NCCN guidelines, an annual breast MRI exam along with mammogram is recommended if the patient's lifetime risk is 20% or greater. This exam was interpreted at Station ID: [id number]. NOTE: For mammograms, a report in lay terms will be sent to the patient. Approximately 15% of breast malignancies will not be visualized mammographically. In the management of a palpable breast mass, a negative mammogram must not discourage biopsy of a clinically suspicious lesion. Electronically Signed By: Jakob Mcmahan M.D. [facility]/:03/24/2024 10:18:37 letter sent: Followup Recommended ACR BI-RADS Category 3: Probably benign [id number]
== END ==
LOC: MAMMO 09:32
PROVIDERS: Family Provider Registered Nurse Diabetes Educator; PCP Registered Nurse Diabetes Educator; Referring Provider Registered Nurse Diabetes Educator; Visit Provider Registered Nurse Diabetes Educator
DX: R92.8 Other abnormal and inconclusive findings on diagnostic imaging of breast (principal); N64.89 Other specified disorders of breast; R92.321 Mammographic fibroglandular density, right breast
CPT/HCPCS: 77065; G0279

== ENCOUNTER → 2024-04-18 17:01 | Outpatient (CLI) | payer OTHER, SELFPAY ==
[2024-04-18 18:57] LABS: Alanine Aminotransferase 49 IU/L (<35); Albumin 3.9 g/dL (3.5-5.0); Albumin Globulin Ratio 1.7 (1.0-2.8); Alkaline Phosphatase 87 U/L (38-126); Aspartate Aminotransferase 45 IU/L (14-36); Bilirubin Total 0.3 mg/dL (0.2-1.3); Blood Urea Nitrogen 25 mg/dL (7-17); Carbon Dioxide 24 mmol/L (22-32); Chloride 107 mmol/L (98-107); Estimated Glomerular Filt Rate > 60 mL/min (>60); Globulin 2.3 g/dL (1.7-4.1); Glucose 100 mg/dL (70-100); HEMOLYSIS < 15 (0-50); Magnesium 2.3 mg/dL (1.6-2.3); Potassium 4.7 mmol/L (3.4-5.1); Sodium 136 mmol/L (137-145); Total Protein 6.2 g/dL (6.3-8.2)
[2024-04-18 19:26] LABS: TSH w/ Reflex to FT4 0.92 uIU/mL (0.47-4.68)
== END ==
PROVIDERS: Family Provider Registered Nurse Diabetes Educator; PCP Registered Nurse Diabetes Educator; Referring Provider Registered Nurse Diabetes Educator; Visit Provider Registered Nurse Diabetes Educator
DX: R25.2 Cramp and spasm (principal); R53.83 Other fatigue; R79.89 Other specified abnormal findings of blood chemistry
CPT/HCPCS: 36415; 80053; 83735; 84443

== ENCOUNTER → 2024-07-04 16:45 | Outpatient (CLI) | payer OTHER, SELFPAY ==
[2024-07-04 17:27] LABS: Influenza A - CEPHEID Flu A NEGATIVE (NEGATIVE); Influenza B - CEPHEID Flu B NEGATIVE (NEGATIVE); Respiratory Syncytial Virus Negative (Negative)
[2024-07-04 17:29] LABS: COVID-19 CEPHEID 4-PLEX PCR Negative (Negative)
== END ==
PROVIDERS: Family Provider Registered Nurse Diabetes Educator; PCP Registered Nurse Diabetes Educator; Visit Provider Physician Assistant Medical
DX: R05.1 Acute cough (principal)
CPT/HCPCS: 0241U

== ENCOUNTER → 2024-10-12 08:38 | Outpatient (CLI) | payer OTHER, SELFPAY ==
--- NOTE | 2024-10-12 08:38 | DI.MG.S_ITS ---
BILATERAL DIGITAL DIAGNOSTIC MAMMOGRAM 3D/2D SHORT-TERM FOLLOW-UP: 10/12/2024 CLINICAL: Short term follow up of the right breast, due for bilateral imaging. Comparison is made to exams dated: 03/24/2024 mammogram, 09/22/2023 mammogram, 09/06/2023 mammogram, and 09/22/2023 ultrasound - [facility]. There are scattered areas of fibroglandular density (category b / 25%-50% glandular tissue). There is a focal asymmetry in the right breast at 11 o'clock in the retroareolar region. This is not significantly changed and was not seen on the prior ultrasound. No other significant masses, calcifications, or other findings are seen in either breast. IMPRESSION: PROBABLY BENIGN The focal asymmetry in the right breast resembles fibroglandular tissue and is probably benign. A follow-up mammogram in 12 months is recommended to demonstrate long-term stability. Exam findings were conveyed to the patient. Based on the Tyrer Cuzick model (a risk assessment model) the patient's lifetime risk is 8.1% and her 10 year risk is 3.2%. According to the ACR, ACS, and NCCN guidelines, an annual breast MRI exam along with mammogram is recommended if the patient's lifetime risk is 20% or greater. This exam was interpreted at Station ID: [id number]. NOTE: For mammograms, a report in lay terms will be sent to the patient. Approximately 15% of breast malignancies will not be visualized mammographically. In the management of a palpable breast mass, a negative mammogram must not discourage biopsy of a clinically suspicious lesion. Electronically Signed By: Eder Givens M.D. [facility] [place]/:10/12/2024 09:29:44 letter sent: Followup Recommended ACR BI-RADS Category 3: Probably Benign
== END ==
LOC: MAMMO 08:38
PROVIDERS: Family Provider Registered Nurse Diabetes Educator; PCP Registered Nurse Diabetes Educator; Referring Provider Registered Nurse Diabetes Educator; Visit Provider Registered Nurse Diabetes Educator
DX: R92.8 Other abnormal and inconclusive findings on diagnostic imaging of breast (principal)
CPT/HCPCS: 77066; G0279

== ENCOUNTER → 2024-12-27 07:41 | Outpatient (CLI) | payer OTHER, SELFPAY ==
[2024-12-27 09:02] LABS: Hematocrit 40.8 % (36-46); Mean Corpuscular HGB Conc 34.2 % (30-36); Mean Corpuscular Hemoglobin 31.4 PG (26-34); Mean Corpuscular Volume 91.9 fL (80-100); Platelet Count 287 X10^3/uL (150-400); Red Blood Cell Count 4.44 X10^6/uL (4.0-5.2); Red Cell Distribution Width 13.3 % (11.6-14.8); White Blood Cell Count 4.6 X10^3/uL (4.5-11.0)
[2024-12-27 09:10] LABS: Hemoglobin A1C% w Est Avg Glu 4.7 % (4.0-6.0)
[2024-12-27 09:23] LABS: Alanine Aminotransferase 34 IU/L (<35); Albumin 3.7 g/dL (3.5-5.0); Albumin Globulin Ratio 1.7 (1.0-2.8); Alkaline Phosphatase 76 U/L (38-126); Aspartate Aminotransferase 35 IU/L (14-36); BUN Creatinine Ratio 12.4 (6-22); Bilirubin Total 0.6 mg/dL (0.2-1.3); Blood Urea Nitrogen 12 mg/dL (7-17); Carbon Dioxide 27 mmol/L (22-32); Chloride 102 mmol/L (98-107); Cholesterol 199 mg/dL (140-199); Estimated Glomerular Filt Rate > 60 mL/min (>60); Globulin 2.2 g/dL (1.7-4.1); Glucose 87 mg/dL (80-110); HDL Cholesterol 79 mg/dL (40-60); HEMOLYSIS < 15 (0-50); LDL Cholesterol Calculated 102 mg/dL (<100); Potassium 4.2 mmol/L (3.4-5.1); Sodium 135 mmol/L (137-145); Total Protein 5.9 g/dL (6.3-8.2); Triglycerides 92 mg/dL (35-150)
[2024-12-27 09:42] LABS: HEMOLYSIS < 15 (0-50); Iron 110 ug/dL (37-170)
[2024-12-27 09:54] LABS: Ferritin 68 ng/mL (11-264); Percent Iron Saturation 44 % (15-50); Total Iron Binding Capacity 250 ug/dL (265-497); Transferrin 207 mg/dL (206-381); Vitamin D 25 Hydroxy (D3) 81.6 ng/mL (30.0-100.0)
[2024-12-27 10:12] LABS: TSH w/ Reflex to FT4 1.23 uIU/mL (0.47-4.68)
[2024-12-27 10:48] LABS: Folate 13.6 ng/mL (2.76-20.0); Vitamin B12 834 pg/mL (239-931)
== END ==
PROVIDERS: Family Provider Registered Nurse Diabetes Educator; PCP Registered Nurse Diabetes Educator; Referring Provider Registered Nurse Diabetes Educator; Visit Provider Registered Nurse Diabetes Educator
DX: E78.5 Hyperlipidemia, unspecified (principal); R74.01 Elevation of levels of liver transaminase levels; E55.9 Vitamin D deficiency, unspecified; Z90.3 Acquired absence of stomach [part of]; K76.0 Fatty (change of) liver, not elsewhere classified; E03.9 Hypothyroidism, unspecified
CPT/HCPCS: 36415; 80053; 80061; 82306; 82607; 82728; 82746; 83036; 83540; 83550; 84443; 85027

== ENCOUNTER → 2025-04-04 14:03 | Outpatient (CLI) | payer OTHER, SELFPAY ==
--- NOTE | 2025-04-17 14:00 | DIET.OUTPTC ---
Dietary Outpatient Consult Consult Date:04/04/25 Assessment:? 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 Is on tirzepatide compound between 2.5-5 mg. If lowers dose too much, then gets food noise. Long hx of suffering from food noise. When on right dose, has appropriate appetite, but doesn't deal with overwhelming cravings and constant thoughts about food. Hx of gastric bypass. Does small freq meals. GI symptoms: denies D/C/N/V Diet Recall: B-yogurt, eggs bites or cream of wheat w/ nuts L-eggs and toast, cottage cheese, protein waffle D-meat and veg Currently aiming for 1300 kcals Fluids: 30-40 oz, 1 gatorade packet 230 mg sodium daily Ht:?5 ft 10 in? Wt:?118 lb? BMI:?24.7? Activity: 4-5 days 1 hr walk/hike Nutrition Diagnosis:? Food and nutrition related knowledge deficit r/t limited previous educ on energy needs aeb pt wanting to know maintenance kcals/protein needs Interventions:? Discussed and provided appropriate resources on the following: -Kcal and protein needs, assessed diet recall for amounts -Hydration -Small freq meals as needed Goals: Can stay on her maintenance dose to help with cravings, if weight loss occurs can either add in additional snack ~250 kcals (yogurt//nuts, protein waffles) or adjust dose lower if still experiences food noise benefits. Avoid <110 lb. If adding in resistance exercise too, increase kcals closer to 8007-2330 (MSJx1.55) Aim for 55 oz (30 ml/kg) fluids EER:? 1400 kcals (MSJx1.5, 55 g protein (1g/kg) Monitoring/Evaluations:? F/u PRN Electronically Signed by: Pearl Hewitt Clinical Dietitian [address] [id number]
== END ==
LOC: DIET 14:04
PROVIDERS: Family Provider Registered Nurse Diabetes Educator; PCP Registered Nurse Diabetes Educator; Referring Provider Registered Nurse Diabetes Educator
DX: E78.5 Hyperlipidemia, unspecified (principal); K76.0 Fatty (change of) liver, not elsewhere classified; Z86.39 Personal history of other endocrine, nutritional and metabolic disease; Z90.3 Acquired absence of stomach [part of]; Z71.3 Dietary counseling and surveillance; Z68.24 Body mass index [BMI] 24.0-24.9, adult
CPT/HCPCS: 97802